=== PATIENT | male | born 1940 | race Caucasian/White ===

== ENCOUNTER → 2016-06-22 | Outpatient (CLI) | payer OTHER ==
[~2016-06-22] MED LIST: ALBU1AER9 INH; CLON0.5T20 PO; ENAL10TA PO; FOLI1TAB7 PO; LABE200T24 PO; NTRGSL/4 UT; OMEP20CA9 PO; SIMV40TA4 PO; TRAZ1TAB16 PO; VENL100T2 PO; VENL75TA4 PO
[2016-06-22 17:45] LABS: ALT/SGPT 26 U/L (12-78); BLOOD UREA NITROGEN 24 mg/dl (7-18); BUN/CREATININE RATIO 21.5 (10-20); CALCIUM 8.7 mg/dl (8.5-10.1); CARBON DIOXIDE 29 mmol/L (21-32); CHLORIDE 106 mmol/L (98-107); CHOLESTEROL 144 mg/dl (0-200); GLUCOSE 100 mg/dl (70-99); POTASSIUM 4.2 mmol/L (3.5-5.1); SODIUM 141 mmol/L (136-145)
[2016-06-22 17:47] LABS: ALB/GLOB RATIO 1.1 (0.9-2); ALKALINE PHOSPHATASE 110 U/L (45-117); AST/SGOT 20 U/L (15-37); CHOLESTEROL/HDL RATIO 3.5; HDL CHOLESTEROL 41 mg/dl; LDL CHOLESTEROL CALCULATED 43 mg/dl; TRIGLYCERIDES 302 mg/dl (0-150); VERY LOW DENSITY LIPOPROT CALC 60 mg/dl
[2016-06-22 17:50] LABS: HEMATOCRIT 41.1 % (42-52); MEAN CELL VOLUME 93.8 fL (80-100); MEAN CORPUSCULAR HEMOGLOBIN 30.4 pg (25-34); MEAN CORPUSCULAR HGB CONC 32.4 g/dl (32-36); MEAN PLATELET VOLUME 9.9 fL (7.4-10.4); PLATELET COUNT 167 K/uL (130-400); RED BLOOD COUNT 4.38 M/uL (4.7-6.1); WHITE BLOOD COUNT 6.27 K/uL (4.8-10.8)
[2016-06-22 18:28] LABS: ALKALINE PHOSPHATASE 104 U/L (45-117); ALT/SGPT 28 U/L (12-78); AST/SGOT 16 U/L (15-37)
== END | disposition home or self-care (01) ==
LOC: C.LABMFLN 08:42
PROVIDERS: ATTEND Internal Medicine Cardiovascular Disease
DX: I10 Essential (primary) hypertension (principal); E78.00 Pure hypercholesterolemia, unspecified; I25.10 Atherosclerotic heart disease of native coronary artery without angina pectoris

== ENCOUNTER → 2017-01-09 | Outpatient (CLI) | payer OTHER | END | disposition home or self-care (01) | LOC: C.LABMFLN 15:09 | PROVIDERS: ATTEND Urology | DX: R10.30 Lower abdominal pain, unspecified (principal) ==

== ENCOUNTER → 2017-01-14 | Outpatient (CLI) | payer OTHER ==
--- NOTE | 2017-01-14 14:24 | DIAGNOSTIC IMAGING REPORT ---
ABDOMEN FOR HERNIA CLINICAL HISTORY: Groin pain. Evaluate for hernia. COMPARISON STUDY: No previous studies for comparison. FINDINGS: No upper abdominal hernia was identified. Note was made of bilateral fat containing inguinal hernias, right larger left. Hernias were incompletely reducible. IMPRESSION: Fat containing bilateral inguinal hernias, right larger than left. Hernias not completely reducible. Electronically signed by: Figueroa Portillo M.D. 01/14/2017 2:23 PM Dictated Date/Time: 01/14/2017 2:21 PM
--- NOTE | 2017-01-14 14:35 | DIAGNOSTIC IMAGING REPORT ---
(TESTICULAR) SCROTUM-CONT CLINICAL HISTORY: R10.30 Groin pain COMPARISON STUDY: No previous studies for comparison. FINDINGS: The right testis measures 40 x 27 x 25 mm. The left testis measures 25 x 9 x 11 mm. 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 The patient states this is been present in excess of 60 years. There is no evidence of testicular torsion. No intratesticular masses are visualized. IMPRESSION: 1. Normal right testis 2. Markedly atrophic left testis, a finding which the patient states has been present in excess of 60 years Electronically signed by: Dev Marshall M.D. 01/14/2017 2:34 PM Dictated Date/Time: 01/14/2017 2:30 PM
== END | disposition home or self-care (01) ==
LOC: C.ULTR 12:56
PROVIDERS: ATTEND Urology
DX: R10.30 Lower abdominal pain, unspecified (principal); K40.20 Bilateral inguinal hernia, without obstruction or gangrene, not specified as recurrent; N50.0 Atrophy of testis

== ENCOUNTER 2017-04-04 06:50 | Day surgery (SDC) | payer OTHER ==
[2017-03-19 14:52] VITALS: BMI 32.0
--- NOTE | 2017-03-19 15:26 | PAT Medication Instructions ---
Service Date Mar 19, 2017. Current Home Medication List Albuterol Sulfate (Proair Respiclick), 2 PUFFS INH PRN Aspirin (Aspirin Ec), 81 MG PO QAM Atorvastatin (Lipitor), 20 MG PO HS Cetirizine (Zyrtec), 10 MG PO QAM Clonazepam (Clonazepam Odt), 0.5 MG PO TID Enalapril Maleate (Vasotec), 10 MG PO QPM Ferrous Sulfate (Ferrous Sulfate), 325 MG PO QAM Folic Acid (Folvite), 1 MG PO QAM Labetalol Hcl (Labetalol Hcl), 200 MG PO BID Multivitamin (Multivitamin), 1 TAB PO QAM Naproxen (Aleve), 220 MG PO PRN Nitroglycerin (Nitrostat), 0.4 MG UT PRN Omeprazole (Prilosec), 20 MG PO QAM Trazodone Hcl (Desyrel), 25 MG PO HS Venlafaxine Hcl (Effexor), 75 MG PO QAM Venlafaxine Hcl (Effexor), 150 MG PO HS Medication Instructions For Your Scheduled Surgery - Check with surgeon and apprentice carpenter for instructions: Aspirin (Aspirin Ec), 81 MG PO QAM Naproxen (Aleve), 220 MG PO PRN - Hold the following medications 24 hours prior to surgery: Enalapril Maleate (Vasotec), 10 MG PO QPM - Hold the following medications the morning of surgery: Cetirizine (Zyrtec), 10 MG PO QAM Ferrous Sulfate (Ferrous Sulfate), 325 MG PO QAM Folic Acid (Folvite), 1 MG PO QAM Multivitamin (Multivitamin), 1 TAB PO QAM - Take the following medications the morning of surgery with a sip of water: Venlafaxine Hcl (Effexor), 75 MG PO QAM Nitroglycerin (Nitrostat), 0.4 MG UT PRN (if needed) Omeprazole (Prilosec), 20 MG PO QAM Labetalol Hcl (Labetalol Hcl), 200 MG PO BID Albuterol Sulfate (Proair Respiclick), 2 PUFFS INH PRN (if needed) Clonazepam (Clonazepam Odt), 0.5 MG PO TID Proair PRN (if needed) - Take the following medications as scheduled the night before surgery: Trazodone Hcl (Desyrel), 25 MG PO HS Nitroglycerin (Nitrostat), 0.4 MG UT PRN (if needed) Labetalol Hcl (Labetalol Hcl), 200 MG PO BID Atorvastatin (Lipitor), 20 MG PO HS Albuterol Sulfate (Proair Respiclick), 2 PUFFS INH PRN (if needed) Clonazepam (Clonazepam Odt), 0.5 MG PO TID Proair PRN (if needed) If you have any questions please call us at [phone] or [phone] or [phone]
[2017-03-19 15:55] LABS: BASO % 0.5 %; BASO ABS # 0.03 K/uL (0-0.2); EOS % 4.7 %; EOS ABS # 0.26 K/uL (0-0.5); HEMATOCRIT 40.1 % (42-52); IG# 0.01 K/uL (0.00-0.02); LYMPH % 21.1 %; LYMPH ABS # 1.18 K/uL (1.2-3.4); MEAN CELL VOLUME 95.9 fL (80-100); MEAN CORPUSCULAR HEMOGLOBIN 31.1 pg (25-34); MEAN CORPUSCULAR HGB CONC 32.4 g/dl (32-36); MEAN PLATELET VOLUME 10.1 fL (7.4-10.4); MONO ABS # 0.56 K/uL (0.11-0.59); NEUT % 63.5 %; NEUT ABS # 3.54 K/uL (1.4-6.5); PLATELET COUNT 148 K/uL (130-400); RED CELL DISTRIBUTION WIDTH CV 13.3 % (11.5-14.5); RED CELL DISTRIBUTION WIDTH SD 46.2 fL (36.4-46.3); WHITE BLOOD COUNT 5.58 K/uL (4.8-10.8)
[2017-03-19 16:07] LABS: CREATININE 1.11 mg/dl (0.60-1.40); POTASSIUM 4.5 mmol/L (3.5-5.1)
[~2017-04-04] VITALS: Ht 162.6 cm; Wt 85.4 kg
[~2017-04-04 06:50] MED LIST changes: +ALBU18002 INH; -ALBU1AER9 INH; +ASPI81TA28 PO; +ATOR-22 PO; +CEFAZOLIN 2000MG IV PUSH 10 ML IV SCH; +CETI10TA84 PO; +FERR1TAB62 PO; -FOLI1TAB7 PO; +FOLI1TAB8 PO; +LACTATED RINGER'S 1000ML 1,000 ML IV SCH; +MULT-506 PO; +NAPR1TAB9 PO; -SIMV40TA4 PO; +TRAZ-119 PO; -TRAZ1TAB16 PO
[2017-04-04 07:24] VITALS: BP 177/69; PULSE 74; TEMP 36.9; O2SAT 94; Ht 162.6 cm; Wt 85.4 kg
[2017-04-04] MEDS ORDERED: LIDOCAINE 2% 20 MG/ML 5ML SYR IV ONE (07:45)
[2017-04-04] MEDS ORDERED: PROPOFOL IV EMULSION 10 MG/ML 20 ML VIAL IV ONE (07:45)
[2017-04-04] MEDS ORDERED: FENTANYL CITRATE INJ 50 MCG/1 ML 2 ML VIAL ONE ×2 (07:46→09:24)
[2017-04-04] MEDS ORDERED: ACETAMINOPHEN 1000 MG/100 ML IV IV ONE (07:49)
[2017-04-04] MEDS ORDERED: EpINEphrine INJ 1MG/ML AMP 1 MG/ML AMP ONE (08:05)
[2017-04-04] MEDS ORDERED: BUPIVACAINE 0.5 % 5 MG/1 ML MPF 30ML VIAL ONE (08:05)
--- NOTE | 2017-04-04 08:05 | History & Physical Bridge Note ---
H&P Re-Evaluation Bridge Note: I have examined the patient, reviewed the History & Physical and in the interval since the performance of the History & Physical I have noted the following changes of clinical significance: No changes noted
[2017-04-04] MEDS ORDERED: ALBUTEROL HFA INHALER 8.5 GM INH ONE (08:33)
[2017-04-04] MEDS ORDERED: PROMETHAZINE HCL INJ 6.25 MG in SODIUM CHLORIDE 0.9% 50ML 50 ML IV PRN (08:45)
[2017-04-04] MEDS ORDERED: FENTANYL CITRATE INJ 50 MCG/1 ML 2 ML VIAL IV PRN (08:45)
[2017-04-04] MEDS ORDERED: ATROPINE SULFATE 0.1 MG/ML 5ML SYR IV PRN (08:45)
[2017-04-04] MEDS ORDERED: EpHEDrine SULFATE INJ 50 MG/ML AMP IV PRN (08:45)
[2017-04-04] MEDS ORDERED: ONDANSETRON INJ 2 MG/ML 2 ML VIAL IV PRN ×2 (08:45→10:30)
[2017-04-04] MEDS ORDERED: ONDANSETRON INJ 2 MG/ML 2 ML VIAL ONE (08:47)
[2017-04-04] MEDS ORDERED: GLYCOPYRROLATE INJ 0.2 MG/ML VIAL ONE (08:47)
[2017-04-04] MEDS ORDERED: ROCURONIUM BROMIDE 10 MG/ML 5 ML VIAL IV ONE (08:47)
[2017-04-04] MEDS ORDERED: SUCCINYLCHOLINE CHLORIDE 20 MG/ML 10 ML VIAL IV ONE (08:47)
[2017-04-04] MEDS ORDERED: AMIODARONE HCL INJ 50 MG/ML 3 ML VIAL ONE (08:47)
[2017-04-04] MEDS ORDERED: NEOSTIGMINE METHYLSULFATE 5 MG/5 ML SYR ONE (08:47)
--- NOTE | 2017-04-04 10:09 | [facility] Post Operative Brief Note ---
Immediate Operative Summary Operative Date Apr 04, 2017. Pre-Operative Diagnosis Bilateral inguinal hernias Post-Operative Diagnosis Same as preop Procedure(s) Performed Open Bilateral Inguinal Hernia Repair with Mesh Surgeon Dr. Maldonado Photographic Plate Maker Surgeon(s) Dariusz Cortez PA-C Estimated Blood Loss 10 cc Findings 1. right direct and indirect inguinal hernias 2. indirect left inguinal hernia Specimens None, as per surgeon Anesthesia get Complication(s) None Disposition Recovery Room / PACU
[2017-04-04] MEDS ORDERED: HYDR-5688 PO (10:22)
--- NOTE | 2017-04-04 10:25 | Discharge Instructions ---
Discharge Instructions Date of Service Apr 04, 2017. Admission Reason for Admission: Bilateral Inguinal Hernia Discharge Discharge Diagnosis / Problem: Bilateral Inguinal Hernia Discharge Goals Goal(s): Decrease discomfort, Improve function Activity Recommendations Activity Limitations: as noted below Lifting Limitations: no more than 10 pounds Exercise/Sports Limitations: until after follow-up appointment May Resume Sexual Activity: after follow-up appointment Shower/Bathe: tomorrow Driving or Machine Use: resume 1 day after discharge . Instructions / Follow-Up Instructions / Follow-Up You may shower tomorrow. You have surgical glue, Dermabond, over your incision. This will eventually start to peel off by itself, please do not pick at it or pull it off. Please follow-up with Dr. Maldonado in the General Surgery Clinic in 1-2 weeks. Please call the office at [phone] to make a follow-up appointment if you do not have one already. Please call the office with any questions or concerns. Current Hospital Diet Patient's current hospital diet: Discharge Diet Recommended Diet: Regular Diet Procedures Procedures Performed: Open Bilateral Inguinal Hernia Repair with Mesh Pending Studies Studies pending at discharge: no Medical Emergencies . Who to Call and When: Medical Emergencies: If at any time you feel your situation is an emergency, please call 911 immediately. . Non-Emergent Contact Non-Emergency issues call your: Primary Care Provider, Surgeon Call Non-Emergent contact if: temperature is above 101.5, your pain is not controlled, wound has increased drainage, wound has increased redness . "Provider Documentation" section prepared by Ashlyn Cortez. . VTE Core Measure Inpt VTE Proph given/why not?: SCD's [place] Drug Monitoring Program Search Results: patient reviewed within database, no issues identified
[2017-04-04] MEDS ORDERED: HYDROCODONE/ACETAMOPHEN 5/325MG TAB PO PRN ×2 (10:30)
--- NOTE | 2017-04-04 10:36 | [facility] Operative Report ---
Operative Report Operative Date Apr 04, 2017. Pre-Operative Diagnosis Bilateral inguinal hernias Post-Operative Diagnosis Same as preop Procedure(s) Performed Open Bilateral Inguinal Hernia Repair with Mesh Surgeon Dr. Maldonado Chief Transfer And Pumphouse Operator Surgeon(s) Dariusz Cortez PA-C Estimated Blood Loss 10 cc Findings 1. right direct and indirect inguinal hernias 2. left indirect inguinal hernia Specimens None, as per surgeon Anesthesia get Complication(s) None Disposition Recovery Room / PACU Description of Procedure After informed consent was obtained the patient was taken to the operating room and placed in a supine position. After successful intubation attempt was made to place a Fraser catheter without success so we aborted the Fraser catheter. The lower groin areas were both shaved and sterilely prepped and draped in usual fashion. I began on the right groin. I made a right inguinal incision with 15 blade scalpel and carried this down through the soft tissue using electrocautery. The external oblique aponeurosis was skeletonized and a small incision made with a fresh scalpel. This was extended distally through the external ring as well as for several centimeters proximally... once in the inguinal canal we used primarily blunt dissection to free up the cord and cord structures. I gently teased it off of the pubic bone with a finger and placed a [place] drain around it. This did expose a direct inguinal hernia that was easily reducible. As we inspected the cord and cord structures we also noted a moderate size indirect hernia. We were able to take down the hernia sac gently using blunt dissection and small amounts electrocautery back to its neck. I was then able to dunk it back into the abdominal cavity without any difficulty. I then thoroughly irrigated the wound. There was adequate hemostasis. We placed a polypropylene keyhole mesh as an onlay. It was secured distally to Tato's ligament laterally along the shelving portion of Poupart's ligament and medially along the midline musculature. The "arms" of the mesh were wrapped around behind the cord and cord structures and secured to underlying muscle. We used 0 Ethibond for all the sutures. The mesh laid nice and flat and tension free and did not appear to impinge on the cord. A final irrigation was performed. Marcaine was injected around the edges of the mesh for postoperative analgesia. The external oblique aponeurosis was then closed using 2-0 Vicryl in a running fashion. Soft tissue was irrigated and closed using 3-0 Vicryl for the deep layers and 4-0 Monocryl for the skin. Some additional Marcaine was injected around the skin and skin glue used as a dressing Attention then turned to the left inguinal region. The exact same technique was used. We made an incision and carried it down through the soft tissue using electrocautery. The external oblique Neurosis was skeletonized and incised and opened distally and proximally. We again tease the cord and cord structures and gently off the pubic bone placed a [place] around it. There was no evidence of a direct hernia on this side. When we inspected the cord itself we did find an indirect hernia sac with fat incarcerated within it. Again we took this down to the neck. We opted to excise this hernia sac since it was difficult to keep reduced. We clamped it and cut it and tied it off using 3-0 Vicryl and then dunked the stump back down in the abdominal cavity. We then thoroughly irrigated the wound. There was adequate hemostasis. Again we used a polypropylene keyhole mesh as an onlay securing it to Tato's ligament laterally along the shelving portion of Poupart ligament and medially along the midline musculature. The arms were again wrapped around the cord and did not appear to impinge on it. It was secured the muscle using 0 Ethibond. Marcaine was injected around the edges of the mesh. We then closed the external oblique aponeurosis in running fashion with 2-0 Vicryl. Deep layers were closed with 3- 0 Vicryl and skin with 4-0 Monocryl. Again Marcaine injected around the skin for postoperative analgesia and skin glue used as a dressing. Patient was awakened extubated and transferred to recovery in stable condition My physician's speech pathologist assistant was present throughout the entire case. She helped shave and prepped the patient. She helped hold retractors and expose the anatomy throughout both dissections. She also helped with wound closure and dressing placement I attest to the content of the Intraoperative Record and any orders documented therein. Any exceptions are noted below.
[2017-04-04 11:25] VITALS: BP 165/73; PULSE 81; TEMP 37.3; O2SAT 91
--- NOTE | 2017-04-04 11:30 | Anesthesiology Progress Note ---
Anesthesia Post Op Note Date & Time Apr 04, 2017 at 11:30 Vital Signs Pain Intensity: 0 Vital Signs Past 12 Hours Date Time Temp Pulse Resp B/P (MAP) Pulse Ox O2 Delivery O2 Flow Rate FiO2 04/04/17 11:15 36.2 77 18 164/71 94 Room Air 04/04/17 11:05 83 18 175/71 94 Room Air 04/04/17 10:55 82 18 163/80 91 Oxymask 10 04/04/17 10:45 80 18 158/75 94 Oxymask 10 04/04/17 10:37 36.6 88 18 141/78 93 Oxymask 10 04/04/17 07:24 36.9 74 22 177/69 (105) 94 Room Air Notes Mental Status: alert / awake / arousable, participated in evaluation Pt Amnestic to Procedure: Yes Nausea / Vomiting: adequately controlled Pain: adequately controlled Airway Patency, RR, SpO2: stable & adequate BP & HR: stable & adequate Hydration State: stable & adequate Anesthetic Complications: no major complications apparent
[2017-04-04 11:50] VITALS: BP 161/70; PULSE 80; O2SAT 90
[2017-04-04 12:20] VITALS: BP 154/65; PULSE 77; O2SAT 90
[2017-04-04 12:50] VITALS: BP 139/68; PULSE 76; TEMP 37; O2SAT 96
[2017-04-04] MEDS ORDERED: SODIUM CHLORIDE 0.9% 1000ML 1,000 ML IV SCH (14:30)
== END 2017-04-04 13:40 | disposition home or self-care (01) ==
LOC: C.ACU 06:50
PROVIDERS: ATTEND Surgery
DX: K40.20 Bilateral inguinal hernia, without obstruction or gangrene, not specified as recurrent (principal); J44.9 Chronic obstructive pulmonary disease, unspecified; I25.10 Atherosclerotic heart disease of native coronary artery without angina pectoris; I10 Essential (primary) hypertension; K21.9 Gastro-esophageal reflux disease without esophagitis; M19.90 Unspecified osteoarthritis, unspecified site; N40.1 Benign prostatic hyperplasia with lower urinary tract symptoms; N13.8 Other obstructive and reflux uropathy; E78.00 Pure hypercholesterolemia, unspecified; Z79.82 Long term (current) use of aspirin; Z85.3 Personal history of malignant neoplasm of breast; Z92.21 Personal history of antineoplastic chemotherapy; Z87.891 Personal history of nicotine dependence; Z82.49 Family history of ischemic heart disease and other diseases of the circulatory system

== ENCOUNTER → 2017-07-29 | Outpatient (CLI) | payer OTHER ==
[~2017-07-29] MED LIST changes: -CEFAZOLIN 2000MG IV PUSH 10 ML IV SCH; -LACTATED RINGER'S 1000ML 1,000 ML IV SCH
== END | disposition home or self-care (01) ==
LOC: C.LABMFLN 15:24
PROVIDERS: ATTEND Nurse Practitioner Adult Health
DX: R30.0 Dysuria (principal)

== ENCOUNTER → 2017-07-30 | Outpatient (CLI) | payer OTHER ==
[2017-07-30 18:32] LABS: CREATININE 1.65 mg/dl (0.60-1.40)
== END | disposition home or self-care (01) ==
LOC: C.LABMFLN 15:04
PROVIDERS: ATTEND Nurse Practitioner Adult Health
DX: R31.0 Gross hematuria (principal)

== ENCOUNTER → 2017-07-31 | Outpatient (CLI) | payer OTHER | END | disposition home or self-care (01) | LOC: C.LABMFLN 10:36 | PROVIDERS: ATTEND Nurse Practitioner Adult Health | DX: R31.0 Gross hematuria (principal) ==

== ENCOUNTER → 2017-08-01 | Outpatient (CLI) | payer OTHER ==
[~2017-08-01] MED LIST changes: +OPTIRAY 320 IV PRN
--- NOTE | 2017-08-01 16:47 | DIAGNOSTIC IMAGING REPORT ---
ABD/PELVIS COMBO CLINICAL HISTORY: 76 years-old Male presenting with R31.0 hematuria, burning urination, history of stones, history of liver and colon cancer. TECHNIQUE: Multidetector CT of the abdomen and pelvis was performed before and after the administration of intravenous contrast. IV contrast: 70 mL of Optiray 320. A dose lowering technique was used consistent with the principles of ALARA (as low as reasonably achievable). COMPARISON: None. CT DOSE (mGy.cm): The estimated cumulative dose is 1682.98 mGycm. FINDINGS: [place] Operator topogram: Radiotherapy seeds noted in the prostate. Lung bases: Lungs and pleural spaces clear. Normal heart size. No pericardial or pleural effusion. Liver: Postsurgical changes of right hepatectomy. Compensatory hypertrophy of the caudate and left hepatic lobe. No liver lesions. Patent remaining hepatic vasculature. Biliary: No intrahepatic or extrahepatic biliary ductal dilatation. Gallbladder surgically absent. Pancreas: Mild parenchymal atrophy. Spleen: Normal. Adrenal glands: Normal. Kidneys and ureters: Few well-defined hypodensities likely cysts. Otherwise normal parenchyma. No nephrolithiasis. No hydronephrosis. Mild urothelial thickening, left greater than right. Minimal nonspecific perinephric fat stranding. No ureteral calculi. Ureters are nondilated. Bladder: Circumferential bladder wall thickening. Pelvic organs: Brachytherapy seeds noted in the prostate. Seminal vesicles normal. Bowel: Diverticulosis of the proximal sigmoid and descending colon. No pericolonic fat infiltration. Fluid noted in the proximal colon. Post surgical changes of right hemicolectomy with a patent anastomosis in the right anterior mid abdomen. No bowel obstruction. Peritoneal cavity: No free fluid or intraperitoneal gas. 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 Lymph nodes: No enlarged lymph nodes in the abdomen or pelvis. Vasculature: Atherosclerosis of the normal caliber abdominal aorta. IVC patent. Abdominal wall: Atrophy of the right rectus abdominis may be postsurgical in etiology. Postsurgical changes along the inguinal canals suggested. Nonspecific subcutaneous edema in the lumbar region. Musculoskeletal: Degenerative changes of the spine. IMPRESSION: 1. Circumferential wall thickening of the bladder could relate to chronic bladder outlet obstruction or cystitis. Correlate with urinalysis. 2. Subtle evidence of urothelial thickening bilaterally, left greater than right. This could indicate upper tract infection or chronic inflammation such as from chronic reflux. 3. Postsurgical changes of right hepatectomy and cholecystectomy. 4. Postsurgical changes of right hemicolectomy. No bowel obstruction. 5. Diverticulosis without evidence of diverticulitis. Electronically signed by: Simone Griffni M.D. 08/01/2017 4:46 PM Dictated Date/Time: 08/01/2017 4:39 PM
== END | disposition home or self-care (01) ==
LOC: C.CTS 16:00
PROVIDERS: ATTEND Nurse Practitioner Adult Health
DX: R31.0 Gross hematuria (principal); K57.90 Diverticulosis of intestine, part unspecified, without perforation or abscess without bleeding; Z90.49 Acquired absence of other specified parts of digestive tract; Z90.2 Acquired absence of lung [part of]